=== PATIENT | female | born 1965 | race Caucasian/White ===

== ENCOUNTER 2018-07-06 07:54 | Day surgery (SDC) | payer BC ==
[~2018-07-06] VITALS: Ht 167.6 cm; Wt 78.8 kg
[~2018-07-06 07:54] MED LIST: ALBU90OI61 INH; AZIT500 PO; Ativan1 MG SL; DAYQUIL; ESOM20 PO; HYDACE5 PO; HYDCHLSU PO; NAPR550 PO; NYQUIL; PRIM50 PO; PROACE100; PROM25 PO; QVAR REDIHALE10.6 G1 INH; RANI150; RANI150 PO; RXNAPNA550 PO; SERT100 PO; Trazodone HCl300 MG; Trazodone HCl300 MG PO
--- NOTE | 2018-07-06 08:17 | NUR ---
07/06/18 0817 Tiara López PT PRESENTS TO PRE OP WITH N/V. ZOFRAN GIVEN FOR N/V PER DR. FLYNN.
== END 2018-07-06 10:44 | disposition home or self-care (01) ==
LOC: ORSCSDS 07:54
PROVIDERS: Student in an Organized Health Care Education/Training Program
PROC: 0DBP8ZX Excision of Rectum, Via Natural or Artificial Opening Endoscopic, Diagnostic (ICD-10-PCS; principal; 2018-07-06 09:00)
PROC: 0DB68ZX Excision of Stomach, Via Natural or Artificial Opening Endoscopic, Diagnostic (ICD-10-PCS; principal; 2018-07-06 09:00)
PROC: 0DB58ZX Excision of Esophagus, Via Natural or Artificial Opening Endoscopic, Diagnostic (ICD-10-PCS; principal; 2018-07-06 09:00)
PROC: 0DB98ZX Excision of Duodenum, Via Natural or Artificial Opening Endoscopic, Diagnostic (ICD-10-PCS; principal; 2018-07-06 09:00)
PROC: 0DBN8ZX Excision of Sigmoid Colon, Via Natural or Artificial Opening Endoscopic, Diagnostic (ICD-10-PCS; principal; 2018-07-06 09:00)
DX: R10.9 Unspecified abdominal pain (principal); K21.9 Gastro-esophageal reflux disease without esophagitis; R13.10 Dysphagia, unspecified; R63.4 Abnormal weight loss; K63.5 Polyp of colon; K62.1 Rectal polyp; K29.70 Gastritis, unspecified, without bleeding; K29.80 Duodenitis without bleeding; R15.0 Incomplete defecation; J45.909 Unspecified asthma, uncomplicated; Z79.899 Other long term (current) drug therapy
CPT/HCPCS: 88305; 88342; J2405; J7120

== ENCOUNTER 2018-12-21 11:37 | Emergency (ER) | payer BC ==
[~2018-12-21] VITALS: Ht 167.6 cm; Wt 79.4 kg
[2018-12-21 13:23] LABS: BASOPHILS ABSOLUTE AUTO 0.08 K/mm3 (0.00-0.23); BASOPHILS PERCENT AUTO 1 % (0-2); EOSINOPHILS ABSOLUTE AUTO 0.01 K/mm3 (0.00-0.68); EOSINOPHILS PERCENT AUTO 0 % (0-6); Hematocrit 48.6 % (33.0-51.0); Hemoglobin 16.2 g/dL (11.5-16.0); IMMATURE GRAN ABSOLUTE AUTO 0.02 K/mm3 (0.00-0.10); IMMATURE GRAN PERCENT AUTO 0 % (0-1); LYMPHOCYTES ABSOLUTE AUTO 1.87 K/mm3 (0.84-5.20); LYMPHOCYTES PERCENT AUTO 19 % (21-46); MONOCYTES ABSOLUTE AUTO 0.38 K/mm3 (0.16-1.47); MONOCYTES PERCENT AUTO 4 % (4-13); Mean Corpuscular HGB 29.5 pg (26.0-34.0); Mean Corpuscular HGB Conc 33.3 g/dL (31.5-36.5); Mean Corpuscular Volume 89 fL (80-100); Mean Platelet Volume 11.1 fL (9.1-12.4); NEUTROPHILS ABSOLUTE AUTO 7.65 K/mm3 (1.96-9.15); NEUTROPHILS PERCENT AUTO 76 % (41-73); Platelet Count 398 K/mm3 (150-400); RDW Coefficient Variation 13.3 % (11.7-14.2); RDW Standard Deviation 43.4 fL (35.1-46.3); Red Blood Cell Count 5.49 M/mm3 (3.80-5.20); White Blood Cell Count 10.01 K/mm3 (4.00-11.30)
[2018-12-21 13:47] LABS: Alanine Aminotransfer (ALT/SGP 29 U/L (12-78); Albumin, Blood 4.4 g/dL (3.4-5.0); Albumin/Globulin Ratio 1.2 (0.8-1.8); Alk Phos 127 U/L (50-136); Anion Gap 8 mmol/L (6-16); Aspartate Aminotrans (AST/SGOT 17 U/L (12-37); Bilirubin, Total 0.6 mg/dL (0.1-1.0); Blood Urea Nitrogen 11 mg/dL (8-24); Bun/Creatinine Ratio 17.6 (12.0-20.0); CO2, Blood 25 mmol/L (21-32); Calcium, Blood 9.8 mg/dL (8.5-10.1); Chloride, Blood 109 mmol/L (98-108); Creatinine, Blood 0.63 mg/dL (0.40-1.00); Globulin, Blood 3.8 g/dL (2.2-4.0); Glomerular Filtration Rate >60 (60-); Glucose, Blood 123 mg/dL (70-99); Potassium, Blood 3.8 mmol/L (3.5-5.5); Sodium, Blood 142 mmol/L (136-145); Total Protein, Blood 8.2 g/dL (6.4-8.2)
[2018-12-21 13:57] LABS: Source, Urine Clean Catch
[2018-12-21 14:12] LABS: Blood, Urine 1+ (Neg); Glucose Qualitative, Urine Neg (Neg); Ketones, Urine 3+ (Neg); Leukocyte Esterase, Urine 1+ (Neg); Nitrite, Urine Neg (Neg); Protein, Urine 2+ (Neg); Specific Gravity, Urine 1.025 (1.003-1.022); Urobilinogen, Urine 1+ (Normal)
[2018-12-21 14:22] LABS: Appearance, Urine Hazy (Clear); Bilirubin, Urine 1+ (Neg); Color, Urine Yellow (P-Yellow)
[2018-12-21 14:30] LABS: Bacteria Few /hpf; Calcium Oxalate Crystals Many /hpf; Red Blood Cells, Urine 0-2 /hpf (0-2); Squamous Epithelial Cells Few /hpf (Few)
[2018-12-21] MEDS ORDERED: Percocet 10-321 EACH PO (16:30)
== END 2018-12-21 17:04 | disposition home or self-care (01) ==
LOC: ER 11:37
PROVIDERS: Physician Assistant
DX: R10.31 Right lower quadrant pain (principal); Z88.0 Allergy status to penicillin; Z88.1 Allergy status to other antibiotic agents; K21.9 Gastro-esophageal reflux disease without esophagitis; Z87.891 Personal history of nicotine dependence
CPT/HCPCS: 36415; 74177; 80053; 81001; 83690; 85025; 87086; 96361-59; 96374-59; 96375-59; 96376-59; 99284-25; J2405; J3010; J7030; Q9967

== ENCOUNTER 2019-07-05 12:22 | Emergency (ER) | payer BC ==
[~2019-07-05] VITALS: Ht 167.6 cm; Wt 91.6 kg
[~2019-07-05 12:22] MED LIST changes: +Percocet 10-321 EACH PO
[2019-07-05 13:05] LABS: BASOPHILS ABSOLUTE AUTO 0.09 K/mm3 (0.00-0.23); BASOPHILS PERCENT AUTO 1 % (0-2); EOSINOPHILS ABSOLUTE AUTO 0.03 K/mm3 (0.00-0.68); EOSINOPHILS PERCENT AUTO 0 % (0-6); Hematocrit 45.5 % (33.0-51.0); Hemoglobin 15.1 g/dL (11.5-16.0); IMMATURE GRAN ABSOLUTE AUTO 0.02 K/mm3 (0.00-0.10); IMMATURE GRAN PERCENT AUTO 0 % (0-1); LYMPHOCYTES ABSOLUTE AUTO 2.67 K/mm3 (0.84-5.20); LYMPHOCYTES PERCENT AUTO 29 % (21-46); MONOCYTES ABSOLUTE AUTO 0.38 K/mm3 (0.16-1.47); MONOCYTES PERCENT AUTO 4 % (4-13); Mean Corpuscular HGB 29.5 pg (26.0-34.0); Mean Corpuscular HGB Conc 33.2 g/dL (31.5-36.5); Mean Corpuscular Volume 89 fL (80-100); Mean Platelet Volume 10.6 fL (9.1-12.4); NEUTROPHILS ABSOLUTE AUTO 6.02 K/mm3 (1.96-9.15); NEUTROPHILS PERCENT AUTO 65 % (41-73); Platelet Count 441 K/mm3 (150-400); RDW Coefficient Variation 12.7 % (11.7-14.2); RDW Standard Deviation 41.6 fL (35.1-46.3); Red Blood Cell Count 5.11 M/mm3 (3.80-5.20); White Blood Cell Count 9.21 K/mm3 (4.00-11.30)
[2019-07-05 13:24] LABS: Alanine Aminotransfer (ALT/SGP 49 U/L (12-78); Albumin, Blood 4.2 g/dL (3.4-5.0); Albumin/Globulin Ratio 1.1 (0.8-1.8); Alk Phos 140 U/L (50-136); Anion Gap 10 mmol/L (6-16); Aspartate Aminotrans (AST/SGOT 23 U/L (12-37); Bilirubin, Total 0.6 mg/dL (0.1-1.0); Blood Urea Nitrogen 9 mg/dL (8-24); Bun/Creatinine Ratio 15.1 (12.0-20.0); CO2, Blood 23 mmol/L (21-32); Calcium, Blood 9.6 mg/dL (8.5-10.1); Chloride, Blood 110 mmol/L (98-108); Globulin, Blood 3.7 g/dL (2.2-4.0); Glomerular Filtration Rate >60 (60-); Glucose, Blood 106 mg/dL (70-99); Potassium, Blood 3.7 mmol/L (3.5-5.5); Sodium, Blood 143 mmol/L (136-145); Total Protein, Blood 7.9 g/dL (6.4-8.2)
[2019-07-05] MEDS ORDERED: LOPE2C PO (14:46)
[2019-07-05] MEDS ORDERED: COMPAZINE10 MG PO (14:46)
[2019-07-05] MEDS ORDERED: Norco 5-325 Ta1 EACH PO (14:46)
== END 2019-07-05 15:48 | disposition home or self-care (01) ==
LOC: ER 12:22
PROVIDERS: Emergency Medicine
DX: J11.1 Influenza due to unidentified influenza virus with other respiratory manifestations (principal); K21.9 Gastro-esophageal reflux disease without esophagitis; Z87.891 Personal history of nicotine dependence; Z79.899 Other long term (current) drug therapy
CPT/HCPCS: 36415; 80053; 83690; 85025; 93005; 93010; 96361; 96374; 96375; 99283-25; J0780; J1170; J1200; J7030

== ENCOUNTER → 2019-07-26 | Outpatient (CLI) | payer BC ==
[~2019-07-26] MED LIST changes: +COMPAZINE10 MG PO; +LOPE2C PO; +Norco 5-325 Ta1 EACH PO
[2019-07-26 12:03] LABS: Influenza A Negative (NEGATIVE); Influenza B Positive (NEGATIVE)
== END ==
LOC: LAB 11:39 → LAB SHORT 11:39
PROVIDERS: Nurse Practitioner Family
DX: R50.9 Fever, unspecified (principal)
CPT/HCPCS: 87804

== ENCOUNTER 2019-08-01 14:42 | Emergency (ER) | payer BC ==
[~2019-08-01] VITALS: Ht 167.6 cm; Wt 90.7 kg
[2019-08-01] MEDS ORDERED: PRED20 PO (15:04)
[2019-08-01 15:41] LABS: BASOPHILS ABSOLUTE AUTO 0.05 K/mm3 (0.00-0.23); BASOPHILS PERCENT AUTO 1 % (0-2); EOSINOPHILS ABSOLUTE AUTO 0.03 K/mm3 (0.00-0.68); EOSINOPHILS PERCENT AUTO 0 % (0-6); Hematocrit 44.5 % (33.0-51.0); Hemoglobin 14.9 g/dL (11.5-16.0); IMMATURE GRAN ABSOLUTE AUTO 0.02 K/mm3 (0.00-0.10); IMMATURE GRAN PERCENT AUTO 0 % (0-1); LYMPHOCYTES ABSOLUTE AUTO 3.57 K/mm3 (0.84-5.20); LYMPHOCYTES PERCENT AUTO 36 % (21-46); MONOCYTES ABSOLUTE AUTO 0.33 K/mm3 (0.16-1.47); MONOCYTES PERCENT AUTO 3 % (4-13); Mean Corpuscular HGB 29.5 pg (26.0-34.0); Mean Corpuscular HGB Conc 33.5 g/dL (31.5-36.5); Mean Corpuscular Volume 88 fL (80-100); Mean Platelet Volume 10.6 fL (9.1-12.4); NEUTROPHILS ABSOLUTE AUTO 5.81 K/mm3 (1.96-9.15); NEUTROPHILS PERCENT AUTO 59 % (41-73); Platelet Count 414 K/mm3 (150-400); RDW Coefficient Variation 12.5 % (11.7-14.2); RDW Standard Deviation 40.2 fL (35.1-46.3); Red Blood Cell Count 5.05 M/mm3 (3.80-5.20); White Blood Cell Count 9.81 K/mm3 (4.00-11.30)
[2019-08-01 15:59] LABS: Alanine Aminotransfer (ALT/SGP 86 U/L (12-78); Albumin, Blood 3.6 g/dL (3.4-5.0); Albumin/Globulin Ratio 1.1 (0.8-1.8); Alk Phos 111 U/L (50-136); Anion Gap 8 mmol/L (6-16); Aspartate Aminotrans (AST/SGOT 29 U/L (12-37); Bilirubin, Total 0.4 mg/dL (0.1-1.0); Blood Urea Nitrogen 12 mg/dL (8-24); Bun/Creatinine Ratio 20.6 (12.0-20.0); CO2, Blood 22 mmol/L (21-32); Calcium, Blood 8.9 mg/dL (8.5-10.1); Chloride, Blood 113 mmol/L (98-108); Creatinine, Blood 0.58 mg/dL (0.40-1.00); Globulin, Blood 3.4 g/dL (2.2-4.0); Glomerular Filtration Rate >60 (60-); Glucose, Blood 122 mg/dL (70-99); Potassium, Blood 3.5 mmol/L (3.5-5.5); Sodium, Blood 143 mmol/L (136-145)
[2019-08-01] MEDS ORDERED: ALBU90OI INH (16:06)
[2019-08-01] MEDS ORDERED: ONDA4ODT MM (16:06)
[2019-08-01] MEDS ORDERED: Norco 10-325 T1 EACH PO (16:06)
[2019-08-01] MEDS ORDERED: Prednisone20 MG PO (16:06)
== END 2019-08-01 18:26 | disposition home or self-care (01) ==
LOC: ER 14:42
PROVIDERS: Emergency Medicine
DX: J10.1 Influenza due to other identified influenza virus with other respiratory manifestations (principal); F41.9 Anxiety disorder, unspecified; K21.9 Gastro-esophageal reflux disease without esophagitis; Z88.0 Allergy status to penicillin; Z79.899 Other long term (current) drug therapy; Z79.52 Long term (current) use of systemic steroids; Z79.51 Long term (current) use of inhaled steroids; Z87.891 Personal history of nicotine dependence
CPT/HCPCS: 36415; 71046; 80053; 85025; 94640; 96361; 96374; 96375; 99283-25; A9270-GY; J1885; J2405; J2930; J3010; J7030

== ENCOUNTER 2020-04-18 12:07 | Day surgery (SDC) | payer BC ==
[~2020-04-18] VITALS: Ht 170.2 cm; Wt 96.5 kg
[~2020-04-18 12:07] MED LIST changes: +ALBU90OI INH; +Norco 10-325 T1 EACH PO; +OMEP20ER PO; +ONDA4ODT MM; +PRED20 PO; +Prednisone20 MG PO
== END 2020-04-18 13:55 | disposition home or self-care (01) ==
LOC: ORSCSDS 12:07
PROVIDERS: Student in an Organized Health Care Education/Training Program
PROC: 0DB48ZX Excision of Esophagogastric Junction, Via Natural or Artificial Opening Endoscopic, Diagnostic (ICD-10-PCS; principal; 2020-04-18 13:30)
PROC: 0DB58ZX Excision of Esophagus, Via Natural or Artificial Opening Endoscopic, Diagnostic (ICD-10-PCS; principal; 2020-04-18 13:30)
PROC: 0DB98ZX Excision of Duodenum, Via Natural or Artificial Opening Endoscopic, Diagnostic (ICD-10-PCS; principal; 2020-04-18 13:30)
PROC: 0DB68ZX Excision of Stomach, Via Natural or Artificial Opening Endoscopic, Diagnostic (ICD-10-PCS; principal; 2020-04-18 13:30)
DX: R10.13 Epigastric pain (principal); K31.7 Polyp of stomach and duodenum; J45.909 Unspecified asthma, uncomplicated; F32.9 Major depressive disorder, single episode, unspecified; G25.0 Essential tremor; Z79.899 Other long term (current) drug therapy
CPT/HCPCS: 88305; 88342; J2704; J7120

== ENCOUNTER 2021-09-27 10:03 | Day surgery (SDC) | payer BC ==
[~2021-09-27] VITALS: Ht 167.6 cm; Wt 102.5 kg
[~2021-09-27 10:03] MED LIST changes: +Aspir 8181 MG PO; +METO50 PO
[2021-09-27] MEDS ORDERED: GABA300 PO (10:25)
--- NOTE | 2021-09-27 10:51 | NUR ---
PT HERE FOR COLONOSCOPY. NORMAL PREOP COURSE. NO C/O. AWAITING MD.
--- NOTE | 2021-09-27 11:49 | NUR ---
09/27/21 1149 JOSE LUIS NGUYEN History, Chart, Medications and Allergies reviewed before start of procedure. Patient confirms NPO status and agrees with scheduled surgery. 3-LEAD EKG REVIEWED WITH PHYSICIAN PRIOR TO START OF PROCEDURE. MONITOR INTACT WITH CONTINUOUS PULSE OXIMETRY AND INTERMITTENT BP. PATIENT DETERMINED TO BE ASA APPROPRIATE FOR PROPOFOL SEDATION PRIOR TO START OF PROCEDURE BY . O2 VIA NONREBREATHER.
--- NOTE | 2021-09-27 12:55 | NUR ---
RECEIVED REPORT FROM JOSE LUIS NGUYEN RN. PT AXOX4, TOLERATING PO FLUIDS AND FOOD. REQUESTING TO GO HOME.
--- NOTE | 2021-09-27 13:14 | NUR ---
Patient up to Ambulate independently. Gait steady. Discharge instructions reviewed with patient. Patient verbalizes understanding. Copy given to patient to take home. Patient States Post-Procedure ride home has been arranged. Discharged via wheelchair to private car for ride home. ALL BELONGINGS RETURNED TO PATIENT THAT HE CAME TO STEPDOWN UNIT WITH TO INCLUDE CELLPHONE AND GLASSES.
== END 2021-09-27 23:34 | disposition home or self-care (01) ==
LOC: ORSCMMR 10:03 → ORD 11:00 → ORSCMMR 23:34
PROVIDERS: Student in an Organized Health Care Education/Training Program
PROC: 0DBM8ZX Excision of Descending Colon, Via Natural or Artificial Opening Endoscopic, Diagnostic (ICD-10-PCS; principal; 2021-09-27 11:00)
PROC: 0DBN8ZX Excision of Sigmoid Colon, Via Natural or Artificial Opening Endoscopic, Diagnostic (ICD-10-PCS; principal; 2021-09-27 11:00)
PROC: 0DBK8ZX Excision of Ascending Colon, Via Natural or Artificial Opening Endoscopic, Diagnostic (ICD-10-PCS; principal; 2021-09-27 11:00)
DX: Z12.11 Encounter for screening for malignant neoplasm of colon (principal); Z86.010 Personal history of colon polyps; D12.2 Benign neoplasm of ascending colon; D12.4 Benign neoplasm of descending colon; D12.5 Benign neoplasm of sigmoid colon; K59.09 Other constipation; K57.30 Diverticulosis of large intestine without perforation or abscess without bleeding; F32.A Depression, unspecified; K21.9 Gastro-esophageal reflux disease without esophagitis; Z87.891 Personal history of nicotine dependence; E66.9 Obesity, unspecified; Z68.36 Body mass index [BMI] 36.0-36.9, adult; Z79.899 Other long term (current) drug therapy
CPT/HCPCS: 88305; J2704; J7120